=== PATIENT | male | born 1955 | race Caucasian/White ===

== ENCOUNTER 2018-03-12 10:29 | Outpatient (CLI) | payer BC ==
[2018-03-12 12:31] LABS: Hemoglobin 15.6 g/dL (14.0-18.0); Mean Corpuscular HGB CONC 34.1 g/dL (32.0-36.0); Mean Corpuscular Hemoglobin 29.5 pg (27.0-31.0); Mean Corpuscular Volume 86.6 fl (80.0-94.0); Mean Platelet Volume 7.3 fL (7.4-10.4); Platelet Count 268 thou/uL (130-400); RBC Distribution Width 11.5 % (11.5-14.5); Red Blood Cell (RBC) Count 5.29 mill/uL (4.70-6.10); White Blood Cell (WBC) Count 6.2 thou/uL (4.8-10.8)
[2018-03-12 12:34] LABS: Bilirubin Negative (Negative); Blood, Urine Negative (Negative); Clarity CLEAR (Clear); Glucose, Urine (Dipstick) Negative (Negative); Leukocyte Negative (Negative); Nitrite Negative (Negative); Protein, Urine (Dipstick) Negative (Neg-Trace); Specific Gravity, Urine 1.014 (1.002-1.036); Urobilinogen 0.2 mg/dL (0.2-1.0); pH, Urine 5.5 (5.0-9.0)
[2018-03-12 12:36] LABS: Bacteria/HPF None Seen HPF (None Seen); Hyaline Casts/LPF 0-3 HYALINE CAST LPF (0-3 Hyaline); RBC/HPF 0-3 HPF (0-3); Squamous Epithelial 0-3 HPF (0-3)
[2018-03-12 12:37] LABS: PTT 32.8 SEC (22.9-36.1); Prothrombin Time 13.6 SEC (12.0-14.7)
[2018-03-12 12:51] LABS: ALT (SGPT) 16 U/L (8-55); AST (SGOT) 17 U/L (5-34); Albumin 4.6 g/dL (3.5-5.0); Alkaline Phosphatase 94 U/L (40-150); Anion Gap 11 mmol/L (10-20); BUN (Urea Nitrogen) 13 mg/dL (8.4-25.7); Bilirubin, Total 0.6 mg/dL (0.2-1.2); Calc. Creatinine Clearance 0 mL/min (70-130); Calcium 9.9 mg/dL (7.8-10.44); Carbon Dioxide 28 mmol/L (22-29); Chloride 107 mmol/L (98-107); Estimated GFR-MDRD 78; Globulin 3.1 g/dL (2.4-3.5); Glucose 101 mg/dL (70-105); Potassium 4.6 mmol/L (3.5-5.1); Protein, Total 7.7 g/dL (6.0-8.3); Sodium 141 mmol/L (136-145)
--- NOTE | 2018-03-12 13:47 | RAD ---
PA AND LATERAL CHEST: Date: 03/12/18 HISTORY: Preoperative evaluation. COMPARISON: None available. FINDINGS: The cardiac silhouette and pulmonary vasculature are within normal limits. The lungs are clear. Radio paque density overlies the left mid lung zone, which may represent overlying artifact on the lateral projection. Osseous structures are intact. IMPRESSION: No acute cardiopulmonary process. POS: FLOYD
--- NOTE | 2018-03-14 20:13 | EKG ---
Test Reason : Blood Pressure : / mmHG Vent. Rate : 058 BPM Atrial Rate : 058 BPM P-R Int : 132 ms QRS Dur : 098 ms QT Int : 410 ms P-R-T Axes : 020 -08 040 degrees QTc Int : 402 ms Sinus bradycardia Otherwise normal ECG When compared with ECG of 17-DEC-2015 17:19, Incomplete right bundle branch block is no longer Present Confirmed by JODEE SHEN (2) on 03/14/2018 8:12:59 PM Referred By: FELIPE Confirmed By:JODEE SHEN
== END 2018-03-12 10:30 | disposition home or self-care (01) ==
LOC: LABBT 10:29
PROVIDERS: ATTEND Urology
DX: Z01.818 Encounter for other preprocedural examination (principal); R31.29 Other microscopic hematuria; R97.20 Elevated prostate specific antigen [PSA]
CPT/HCPCS: 71046; 80053; 81001; 85027; 85610; 85730; 87086; 93005; 93010

== ENCOUNTER 2018-03-14 10:26 | Outpatient (CLI) | payer BC ==
[2018-03-14] MEDS ORDERED: Iopamidol 370 76% 100 ML VIAL ONE (13:23)
== END 2018-03-14 10:27 | disposition home or self-care (01) ==
LOC: BICCT 10:26
PROVIDERS: ATTEND Urology
DX: R31.29 Other microscopic hematuria (principal); R97.20 Elevated prostate specific antigen [PSA]
CPT/HCPCS: 74178

== ENCOUNTER 2018-04-16 08:14 | Outpatient (CLI) | payer BC ==
[2018-04-16 08:52] LABS: Bilirubin Negative (Negative); Blood, Urine Negative (Negative); Clarity CLEAR (Clear); Glucose, Urine (Dipstick) Negative (Negative); Leukocyte Negative (Negative); Nitrite Negative (Negative); Protein, Urine (Dipstick) Negative (Neg-Trace); Specific Gravity, Urine 1.008 (1.002-1.036); Urobilinogen 0.2 mg/dL (0.2-1.0); pH, Urine 7.5 (5.0-9.0)
[2018-04-16 08:54] LABS: Bacteria/HPF None Seen HPF (None Seen); Hyaline Casts/LPF 0-3 HYALINE CAST LPF (0-3 Hyaline); RBC/HPF 0-3 HPF (0-3); Squamous Epithelial None Seen HPF (0-3); WBC/HPF 0-3 HPF (0-3)
[2018-04-16 08:56] LABS: Mean Corpuscular HGB CONC 34.9 g/dL (32.0-36.0); Mean Corpuscular Hemoglobin 29.9 pg (27.0-31.0); Mean Corpuscular Volume 85.6 fl (80.0-94.0); Mean Platelet Volume 6.7 fL (7.4-10.4); Platelet Count 231 thou/uL (130-400); RBC Distribution Width 11.2 % (11.5-14.5); Red Blood Cell (RBC) Count 5.03 mill/uL (4.70-6.10); White Blood Cell (WBC) Count 5.4 thou/uL (4.8-10.8)
[2018-04-16 09:01] LABS: INR-International Normal Ratio 1.1; PTT 30.6 SEC (22.9-36.1); Prothrombin Time 13.8 SEC (12.0-14.7)
[2018-04-16 09:12] LABS: ALT (SGPT) 16 U/L (8-55); AST (SGOT) 17 U/L (5-34); Albumin 4.4 g/dL (3.5-5.0); Alkaline Phosphatase 83 U/L (40-150); Anion Gap 10 mmol/L (10-20); BUN (Urea Nitrogen) 7 mg/dL (8.4-25.7); Bilirubin, Total 0.6 mg/dL (0.2-1.2); Calc. Creatinine Clearance 0 mL/min (70-130); Calcium 10.2 mg/dL (7.8-10.44); Carbon Dioxide 29 mmol/L (22-29); Chloride 107 mmol/L (98-107); Estimated GFR-MDRD 78; Globulin 3.2 g/dL (2.4-3.5); Glucose 99 mg/dL (70-105); Potassium 3.8 mmol/L (3.5-5.1); Protein, Total 7.6 g/dL (6.0-8.3); Sodium 142 mmol/L (136-145)
== END 2018-04-16 08:15 | disposition home or self-care (01) ==
LOC: LABBT 08:14
PROVIDERS: ATTEND Urology
DX: Z01.818 Encounter for other preprocedural examination (principal); R97.20 Elevated prostate specific antigen [PSA]; R31.29 Other microscopic hematuria
CPT/HCPCS: 80053; 81001; 85027; 85610; 85730; 87086

== ENCOUNTER 2018-04-18 07:28 | Day surgery (SDC) | payer BC ==
[2018-04-16 08:37] VITALS: BMI 26.7
[2018-04-18] MEDS ORDERED: Sodium Chloride 0.9% 100 ML ONE (08:40)
[2018-04-18] MEDS ORDERED: Levofloxacin 500 mg/D5W 100 ml Premix Bag ONE (08:40)
[2018-04-18] MEDS ORDERED: cefTRIAXone\\ROCEPHIN 1 GM VIAL ONE (08:40)
[2018-04-18] MEDS ORDERED: Fentanyl 100 MCG/2 ML VIAL ONE (09:59)
--- NOTE | 2018-04-18 12:25 | OP ---
PREOPERATIVE DIAGNOSES: 1. A 62-year-old male with history of elevated PSA of 4.8, with unremarkable DORITA, approximately 40 g jessica. 2. Incidental microscopic hematuria, CT of the abdomen and pelvis demonstrating no pathology per my review. CT demonstrates small possible intravesical median lobe component. Bladder grossly unrem arkable. POSTOPERATIVE DIAGNOSES: 1. A 62-year-old male with history of elevated PSA of 4.8, with unremarkable DORITA, approximately 40 g jessica. 2. Incidental microscopic hematuria, CT of the abdomen and pelvis demonstrating no pathology per my review. CT demonstrates small possible intravesical median lobe component. Bladder grossly unrem arkable. PROCEDURE: Flexible cystoscopy, transrectal ultrasound volume study and 12 needle core biopsy of the prostate. SURGEON: An Rueda D.O. ANESTHESIA: TIVA. SURGEON COMPLICATIONS: None apparent. DISPOSITION: To the recovery room in stable condition. SPECIMEN: Twelve core needle biopsy. INDICATIONS FOR THE PROCEDURE AND HISTORY: Mr. Murphy is a 62-year-old male status post da Loyda lef t robotic-assisted inguinal hernia repair with mesh, with elevated PSA with very unremarkable DORITA. C T demonstrates no significant pathology. I informed them regarding transrectal ultrasound, prostate biopsy and flexible cystoscopy. The patient desires to proceed with both procedures under anesthesia concomitantly. He declined a local evaluation. Due to preop EKG demonstrating incidental abnormal findings, he was referred to Cardiology. His stress test is grossly unremarkable and has been cleare d to proceed for surgery. INTRAOPERATIVE FINDINGS: 1. Bladder grossly unremarkable. 2. Bilobar hyperplasia of the prostate, mild to moderately obstructing mass effect on the trigone du e to enlarged prostate, there is a tiny intravesical median lobe component. 3. UO was identified approximately 2-3 mm from the bladder neck. 4. Ultrasound of the prostate demonstrating no significant lesion. DESCRIPTION OF THE PROCEDURE: After an informed consent is signed, the patient is taken to the opera ting room, placed in supine position with the genital area prepped and draped in the usual surgical s terile fashion. A flexible cystoscopy was performed demonstrating normal anterior and posterior uret hra. Mild to moderately obstructing bilobar hyperplasia was noted. There is a mass effect on the fl oor of the bladder secondary to enlarged prostate. There is an early tiny intravesical median lobe c omponent consistent with the CT scan. The UO was identified approximately 2-3 mm proximal to the jos dder neck. The bladder was grossly unremarkable with no evidence of bladder stones, tumors or divert iculum. At this time, the scope was removed and the bladder completely emptied. The patient was the n placed in a left lateral decubitus position. Digital rectal exam repeat demonstrated no significan t nodularity. A transrectal ultrasound probe was placed. We did measure the volume which demonstrat es urethral length of 4.5 cm with 5.1, height of 3.4 cm with total volume of 42.3 grams. We then pas sed a biopsy needle gun and the systematic 12 needle core biopsy was performed. He tolerated the pro cedure well. He states that with Fleet's enema this morning, he had some irritation as he tends to h ave hemorrhoids. Due to discomfort, I did provide [place] 5/325, #30, Levaquin x1 tomorrow morning, Co lace 100 mg b.i.d. p.r.n., Flomax prescription refill was provided. He will follow up with me next to review pathology.
== END 2018-04-18 12:33 | disposition home or self-care (01) ==
LOC: SDC 07:28
PROVIDERS: ATTEND Urology
PROC: 0VB03ZX Excision of Prostate, Percutaneous Approach, Diagnostic (ICD-10-PCS; principal; 2018-04-18)
DX: N41.0 Acute prostatitis (principal); N40.1 Benign prostatic hyperplasia with lower urinary tract symptoms; R39.11 Hesitancy of micturition; R31.29 Other microscopic hematuria; G43.909 Migraine, unspecified, not intractable, without status migrainosus; E78.6 Lipoprotein deficiency; Z79.899 Other long term (current) drug therapy; Z79.2 Long term (current) use of antibiotics; Z79.52 Long term (current) use of systemic steroids
CPT/HCPCS: 88305; J0696; J1956; J3010; J7050

== ENCOUNTER 2019-11-20 11:46 | Outpatient (CLI) | payer BC ==
[2019-11-20 14:24] LABS: #Eosinphils 0.1 thou/uL (0.0-0.7); #Lymphocytes 1.7 thou/uL (1.20-3.40); #Monocytes 0.3 thou/uL (0.11-0.59); #Neutrophils 4.7 thou/uL (1.40-6.50); %Basophils 0.5 % (0.0-1.0); %Eosinophils 1.8 % (0.0-10.0); %Lymphocytes 24.6 % (21.0-51.0); %Neutrophils 68.1 % (42.0-75.0); Hemoglobin 14.9 g/dL (14.0-18.0); Mean Corpuscular HGB CONC 33.7 g/dL (32.0-36.0); Mean Corpuscular Hemoglobin 29.2 pg (27.0-31.0); Mean Corpuscular Volume 86.7 fL (78.0-98.0); Mean Platelet Volume 7.7 fL (7.4-10.4); Platelet Count 207 thou/uL (130-400); RBC Distribution Width 11.4 % (11.5-14.5); Red Blood Cell (RBC) Count 5.08 mill/uL (4.70-6.10); White Blood Cell (WBC) Count 6.8 thou/uL (4.8-10.8)
[2019-11-20 14:52] LABS: Anion Gap 11 mmol/L (10-20); BUN (Urea Nitrogen) 9 mg/dL (8.4-25.7); Calc. Creatinine Clearance 0 mL/min (70-130); Calcium 9.6 mg/dL (7.8-10.44); Carbon Dioxide 29 mmol/L (23-31); Chloride 107 mmol/L (98-107); Estimated GFR-MDRD 69; Glucose 114 mg/dL (80-115); Potassium 3.8 mmol/L (3.5-5.1); Sodium 143 mmol/L (136-145)
== END 2019-11-20 11:47 | disposition home or self-care (01) ==
LOC: LABBT 11:46
PROVIDERS: ATTEND Surgery
DX: Z01.812 Encounter for preprocedural laboratory examination (principal); K44.9 Diaphragmatic hernia without obstruction or gangrene
CPT/HCPCS: 80048; 85025

== ENCOUNTER 2019-11-29 06:02 | Day surgery (SDC) | payer BC ==
[2019-11-20 13:09] VITALS: BMI 26.9
[2019-11-29] MEDS ORDERED: Bupivacaine 0.25% HCL 30 ML VIAL ONE (06:46)
[2019-11-29] MEDS ORDERED: Bupivacaine PF 0.5% 30 ML VIAL ONE (06:46)
[2019-11-29] MEDS ORDERED: Lidocaine 1% w/Epinephrine 1:100K 20 ML VIAL ONE (06:46)
[2019-11-29] MEDS ORDERED: Midazolam HCl 2 mg/2 ml Vial ONE ×2 (06:52→07:18)
[2019-11-29] MEDS ORDERED: Fentanyl 100 MCG/2 ML VIAL ONE (07:18)
[2019-11-29] MEDS ORDERED: Dexamethasone 20 MG/5 ML VIAL ONE (09:38)
[2019-11-29] MEDS ORDERED: Ondansetron PF 4 MG/2 ML Vial ONE (09:38)
[2019-11-29] MEDS ORDERED: diphenhydrAMINE 50 MG/ML VIAL ONE (09:38)
[2019-11-29] MEDS ORDERED: PROPOFOL 200 MG/20 ML VIAL ONE (09:38)
--- NOTE | 2019-12-02 10:45 | OP ---
DATE OF PROCEDURE: 11/29/2019 PREOPERATIVE DIAGNOSIS: Left groin mass. POSTOPERATIVE DIAGNOSIS: Left groin mass. PROCEDURES PERFORMED: Hydrocelectomy and left groin exploration. ANESTHESIA: General. ESTIMATED BLOOD LOSS: Minimal. COMPLICATIONS: None. DESCRIPTION OF PROCEDURE: The patient was taken to the operating room and laid supine on the operating room table. After general anesthetic was obtained, bilateral abdomen was shaved, prepped, and draped in a sterile fashion. Oblique incision was made above the pubic tubercle and left groin. Cautery was dissected down and through Brady's to expose external oblique. External oblique fibers were opened along the course of the external ring. There was a nodular structure in the distal cord structures. Cord structures were mobilized on the pubic tubercle using a Neftali drain. Dissection superomedially on the cord showed there to be no indirect hernia sac. There was a large fluid collection nodular structure in the distal cord. This was opened to be a hydrocele. The hydrocele cyst cavity was marsupialized and majority of it removed. There was no recurrent indirect or direct inguinal hernia. A portion of the cyst was sent, the cystic lining was sent to Path for final diagnosis. The wound was irrigated. Local anesthetic was applied. Because of the dissection in the anterior space, decision was made to place mesh. The precut mesh was brought into the sterile field and placed in the inguinal floor and sewn distally to the pubic tubercle, medially to the transverse arch, laterally to the shelving edge of inguinal ligament. The mesh was cut to incorporate the internal ring, wrapped around the internal ring and the two ends were reapproximated at the shelving edge of inguinal ligament. Extra mesh was tucked back under to the external oblique proximally. Tunneled cath for postoperative pain threaded above the incision, left on top of the mesh. External oblique was closed using 3-0 Vicryl, Brady was closed using 3-0 Vicryl, skin was closed using running 4-0 Monocryl and Dermabond. The patient was sent to Recovery in stable condition. All instrument counts, needle counts, and lap counts were correct. Job ID: [id number]
== END 2019-11-29 11:40 | disposition home or self-care (01) ==
LOC: SDC 06:02
PROVIDERS: ATTEND Surgery
PROC: 0VB70ZZ Excision of Left Tunica Vaginalis, Open Approach (ICD-10-PCS; principal; 2019-11-29)
DX: N43.3 Hydrocele, unspecified (principal); G43.909 Migraine, unspecified, not intractable, without status migrainosus; F17.290 Nicotine dependence, other tobacco product, uncomplicated; N40.0 Benign prostatic hyperplasia without lower urinary tract symptoms; Z79.899 Other long term (current) drug therapy
CPT/HCPCS: 88302; A4306; C1781; J0690; J1100; J1200; J2250; J2405; J2704; J3010; S0020

== ENCOUNTER 2020-01-14 09:05 | Outpatient (CLI) | payer BC ==
--- NOTE | 2020-01-14 11:03 | MRI ---
MR OF THE PELVIS WITH AND WITHOUT CONTRAST INDICATION: 64-year-old male with elevated PSA levels; PSA of 5.71. History of prostate biopsy one ye ar ago. No reported history of prostate cancer. COMPARISON: None TECHNIQUE: Multiplanar, multisequence MR images were obtained of the pelvis with and without IV contr ast. 20 cc of MultiHance was utilized for the examination. The examination was reviewed on a separate [employer] 3-D workstation for multiplanar metric evaluation. FINDINGS: Prostate size: The prostate measured 4.8 x 4.5 x 5.5cm. 54.88 cc. Peripheral zone: No area of restricted diffusion is seen within the peripheral zone. Central zone: No suspicious signal abnormality or focal lesion. There are numerous BPH nodules within the central zone. Neural vasculature: No evidence of neurovascular invasion Regional lymphadenopathy: None Dynamic contrast enhancement: Negative. Osseous structures: No suspicious osseous lesion is identified. Additional findings: None.. IMPRESSION: 1. PIRADS 2- Low (clinically significant cancer is unlikely to be present.)
== END 2020-01-14 09:06 | disposition home or self-care (01) ==
LOC: TBSIIMAG 09:05
PROVIDERS: ATTEND Urology
DX: R97.20 Elevated prostate specific antigen [PSA] (principal)
CPT/HCPCS: 72197; 82565